=== PATIENT | male | born 1990 | race Caucasian/White ===

== ENCOUNTER 2024-12-25 18:24 | Emergency (ER) | payer OTHER, SELFPAY ==
--- OUTSIDE RECORDS SUMMARY | 2024-12-25 18:26 | XMS_ITS | Clinical Summary ---
Author Organization [facility] Address [address], [place] [address] Care Team Providers Care Water Treatment Plant Repairer Name Role Phone No Primary/Referring, Phy Primary Care Provider Unavailable Source Comments You are receiving this document as you are listed as the primary care provider,follow-up provider, or the patient has been referred to you for consultation.This is in compliance with the Medicare and[facility] EHR Incentive Program,which states Providers who transition their patient to another setting of careor provider of care or refers their patient to another provider of care shouldprovide summary care record for each transition of care or referral. 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 PHQ-9 score of 10. Denies suicidal ideation/intention/plan. Reports a good social support system. Had been initially diagnosed with anxiety in pediatrics, and had been treated with fluoxetine. His last visit for this was with pediatrics on 12/06/2011, and at that time, he was given refills of fluoxetine for 6 months, but recommended to establish with Family Medicine. Has not been seen for anxiety since then. 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/2009 Overview (12/04/2016): Pain Sacroiliac Resolved Problems Problem Noted Date Diagnosed Date Resolved Date Infectious mononucleosis 11/24/2007 Overview (11/16/2015): LW Modifier: diagnosed on 11-15-07 at [facility] Immunizations Immunization Administration Dates Next Due DTP 03/09/1993,01/16/1993 DTaP 10/18/1997 DTaP/Hib 03/29/1994,05/15/1993 HepB Adult (Engerix-B, 20+ y rs, 3 dose series) 05/15/1993,01/16/1993,1992 Hib (ActHIB) 03/09/1993,01/16/1993 MMR 10/18/1997,03/29/1994 OPV, Trivalent (Orimune or tOPV) 998,03/29/1994,03/09/1993,1992 TDAP (BOOSTRIX) 12/10/2005 Tdap 07/21/2013 Varicella 12/10/2005 Social History Tobacco Use Types Packs/Day Years Used Date Smoking Tobacco: Former Smokeless Tobacco: Former Chew Tobacco Cessation:Ready to Q uit: No Alcohol Use Standard Drinks/Week Comments Yes 24 (1 standard drink = 0.6 oz pu re alcohol) Sex and Gender Information Value Date Recorded Sex Assigned at Not on file Legal Sex Male 4:55 AM CDT Gender Identity Not on file Sexual Orientation Not on file Last Filed Vital Signs Vital Sign Reading Time Taken Comments Blood Pressure 130/80 08/20/2016 11:19 AM CDT Pulse 56 08/20/2016 11:19 AM CDT Temperature 36.4 C (97.6 F) 04/14/2015 6:35 AM PBX INSTALLER Respiratory Rate 16 04/14/2015 8:29 AM PBX INSTALLER Oxygen Saturation 100% 04/14/2015 8:29 AM PBX INSTALLER Inhaled Oxygen Concentration - - Weight 75.8 kg (167 lb) 08/20/2016 11:19 AM CDT Height 176.5 cm (5' 9.5) 06/14/2015 4:22 PM PBX INSTALLER Body Mass Index 24.31 06/14/2015 4:22 PM PBX INSTALLER Plan of Treatment Health Maintenance Due Date Last Done Comments Hep C Screening (Preventive Services) 1992 HIV Screening (Preventive Services) 2008 Adult Preventive Visit 2010 HPV Vaccine (1 - 3-dose SCDM series) 11/05/2019 DTaP/Tdap/Td Vaccine (8 - Tdap) 07/22/2023 07/21/2013, 12/10/2005, 10/18/1997, Additional history exists COVID-19 Vaccine ( season) 2024 Influenza Vaccine (#1) 2024 Zoster/Shingles Vaccine (1 of 2) 2042 HepB Vaccine Completed 05/15/1993, 08/1992, 1992 Hib Vaccine Completed 03/29/1994, 04/1993, 03/09/1993, Additional history exists IPV (Polio) Vaccine Completed 10/18/1997, 03/29/1994, 03/09/1993, Additional history exists HepA Vaccine Aged Out No longer eligi ble based on patient's age to complete this topic MCV4 Vaccine Aged Out No longer eligi ble based on patient's age to complete this topic Meningococcal B Vaccine Aged Out No l onger eligible based on patient's age to complete this topic Pneumococcal Vaccine Aged Out No long er eligible based on patient's age to complete this topic Insurance [facility] OUT OF STATE Care Teams Water Treatment Plant Repairer Relationship Specialty Start Date End Date No Primary/Referring, Phy PCP - General 12/14/15
--- OUTSIDE RECORDS SUMMARY | 2024-12-25 18:26 | XMS_ITS | Clinical Summary ---
Author Organization [facility] Address [address] [place] [id number] Care Team Providers Care Parole Or Probation Officer Name Role Phone Pcp, No Primary Care Provider Unavailabl e Allergies No known active allergies Medications FLUoxetine (PROZAC) 20 mg capsule Take 1 capsule by mouth every morning. 0 06/22/2013 Active Active Problems Problem Noted Date Diagnosed Date Adult situational stress disorder 06/22/2013 Immunizations Immunization Administration Dates Next Due DTaP 10/18/1997, 4,05/15/1993,03/09/1993,01/16 HIB PRP-T (ActHIB,Hiberix) 03/09/1993,01/16/1993 Hepatitis B (Peds) 05/15/1993,01/16/1993, 993 Hib Conjugate, Unspecified 03/29/1994,05/15/1993 MMR 10/18/1997,03/29/1994 Polio Virus, Unspecified 10/18/1997,03/29/1994,1 1992,01/16/1993 Tdap 07/21/2013,12/10/2005 Varicella Vaccine 12/10/2005 Social History Tobacco Use Types Packs/Day Years Used Date Smoking Tobacco: Never Smokeless Tobacco: Current Chew Tobacco Cessation:Ready to Q uit: Yes; Counseling Given: Yes Alcohol Use Standard Drinks/Week Comments Not Asked 0 (1 standard drink = 0.6 oz pur e alcohol) Sex and Gender Information Value Date Recorded Sex Assigned at Not on file Legal Sex Male 2:58 PM DISTRICT 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 Gender Identity Not on file Sexual Orientation Not on file Obstetrics History Last Filed Vital Signs Vital Sign Reading Time Taken Comments Blood Pressure 159/73 12/29/2013 9:18 AM CDT Pulse 76 12/29/2013 9:18 AM CDT Temperature 37.1 C (98.8 F) 12/29/2013 9:12 AM CDT Respiratory Rate 16 12/29/2013 9:18 AM CDT Oxygen Saturation 100% 12/29/2013 9:18 AM CDT Inhaled Oxygen Concentration - - Weight 66.7 kg (147 lb) 07/21/2013 12:30 PM CDT Height 176.5 cm (5' 9.5) 06/22/2013 12:09 PM CD T Body Mass Index - - Plan of Treatment Health Maintenance Due Date Last Done Comments Depression screening for age 12+ 2004 HIV for age 15-65 11/05/2007 BMI (ht and wt on same day) for age 18+ 2010 Hepatitis C screening for ag e 18-79 2010 HPV series for age 9-45 (1 - 3-dose SCDM series) 11/05/2019 Tetanus booster 07/22/2023 07/21/2013, 12/10/2005 COVID-19 vaccine series (2023- season) 2024 Influenza Vaccine (#1) 2024 RSV vaccine for adults or (1 - 1-dose 75+ series) 11/05/2067 Hepatitis B series for 19+ Completed 05/15, 01/16/1993, 1992 Pneumococcal series for age 6-49 Aged Out No longer eligible b ased on patient's age to complete this topic Insurance OF [employer] * Guarantor: [employer] OF [facility] Account Type Relation to Patient Date of Phone Billing Address [facility] [address] [place] [address] Care Teams Parole Or Probation Officer Relationship Specialty Start Date End Date Pcp, No . PCP - General 06/22/13
[2024-12-25 18:34] VITALS: BP 163/90; PULSE 98; RESP 18; TEMP 37.2; O2SAT 99; BMI 24.6
[2024-12-25 20:02] LABS: Hematocrit* 44.6 % (37.0-53.0); Hemoglobin* 15.8 gm/dL (13.5-17.5); Immature Granulocytes Abs Auto 0.02 K/uL (0.00-0.30); Immature Granulocytes Pct Auto 0.3 %; Lymphocytes Absolute Auto 2.26 K/uL (0.90-2.90); Mean Corpuscular HGB Conc 35 gm/dL (32-36); Mean Corpuscular Hemoglobin 29 pg (26-34); Mean Corpuscular Volume 83 fL (80-100); RDW Coefficient of Variation % 12.0 % (11.5-15.5); Red Blood Count* 5.37 m/uL (4.30-5.90); White Blood Count* 7.18 K/uL (4.50-11.00)
[2024-12-25 20:03] LABS: Appearance Urine Clear (Clear)
[2024-12-25 20:03] LABS: Slide Review Reflex No
--- NOTE | 2024-12-25 20:14 | ED_ITS ---
HPI - Abdominal Pain General Time Seen by Provider: 20:14 Date Seen: 12/25/24 Chief Complaint: Abdominal Pain Stated Complaint: Sharp abdominal Pain Time Seen by Provider: 12/25/24 20:15 Source: patient and family () Mode of arrival: ambulatory History of Present Illness HPI narrative: Rolando is a 34-year-old male with no significant past medical history who presents emergency department for evaluation abdominal pain. Patient complains of abdominal pain that has been intermittent for the past 2 months. Patient describes the pain as a cramping pain, stating it feels the tens unit is on him. Patient reports that pain is usually located in his left lower quadrant however has been having some right upper and epigastric abdominal pain as well. Pain is associated with nausea with vomiting. Denies any fever, chills, chest pain, shortness of breath. Patient reports some urinary frequency but denies any dysuria or hematuria. No medication at arrival. No other complaints. Patient reports that he has cut out caffeine, energy drinks, and has gone gluten free with no improvement of his symptoms. Related Data Previous Rx's ?Medication ?Instructions ?Recorded lisdexamfetamine 40 mg capsule 40 mg PO QDAY #30 caps 11/30/24 lisdexamfetamine 40 mg capsule 40 mg PO QAM #30 caps 0 11/30/24 (Vyvanse) lisdexamfetamine 40 mg capsule 40 mg PO QAM #30 caps 0 11/30/24 (Vyvanse) Allergies Allergy/AdvReac Type Severity Reaction Status Date / Time nickel Allergy Mild Rash Verified 12/25/24 18:36 Review of Systems Narrative Past medical history, past surgical history, medications, allergies, family his tory, and social history were reviewed with the patient. No additional pertinent items. A medically appropriate review of systems was performed with pertinent positives and negatives noted in HPI, all other systems negative. 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 - Attention-deficit hyperactivity disorder, predominantly inattentive type (ICD-10) Social History Narrative: , 5 kids, Wahl, chews, no EtOH What is your current living situation?: I presently have a place to live Problems where you live: no known problems In the past 12 months, utilities in danger of being shut off: no In past 12 months, lack of transportation kept you from medical appts, meetings, work, or getting things needed for daily living: no In the past 12 mos, have been you worried that your food would run out before you had money to buy more?: never true In the past 12 mos, the food you bought just didn't last and you didn't have money to buy more?: never true Smoking Status: Never smoker Second hand tobacco smoke exposure: No How often do you have a drink containing alcohol: never AUDIT-C Alcohol total score: 0 Non-prescribed substance use: denies use How often does anyone, including family, friends and others, physically hurt you : never How often does anyone, including family, friends and others, insult or talk down to you: never How often does anyone, including family, friends and others, threaten you with harm: never How often does anyone, including family, friends and others, scream or curse at you: never Exam Narrative: Exam Narrative: General: Afebrile, no acute distress HEENT: Normocephalic, atraumatic, conjunctiva normal. MMM Neck: non-tender, supple Cardio: regular rate. regular rhythm Resp: Normal work of breathing, no respiratory distress, lungs clear bilaterally, no wheezing, rhonchi, rales Chest/Back: no visual signs of trauma, no midline tenderness, no CVA tenderness Abdomen: soft, non distension, +TTP epigastric and RUQ with no rebound, no guarding, no peritoneal signs Neuro: alert and fully oriented. CN II-XII grossly intact. Grossly normal strength and sensation in all extremities. MSK: no deformities. Normal range of motion Integumentary/Skin: no rash visualized, normal color Psych: normal affect, normal behavior Const: Vital Signs, click to edit/add: Vital Signs - 24 hr 12/25/24 18:34 Temperature 99 F Pulse Rate [Right] 98 Respiratory Rate 18 Blood Pressure [Ri ght Upper Arm] 163/90 H Pulse Oximetry 99 Oxygen Delivery Me thod Room Air Course Vital Signs Vital signs: Initial Vital Signs Temperature 99 F 12/25/24 18:34 Temperature Source Temporal Artery Scan 12/25/24 18:34 Pulse Rate 98 12/25/24 18:34 Pulse Rhythm Regular 12/25/24 18:34 Respiratory Rate 18 12/25/24 18:34 Blood Pressure 163/90 H 12/25/24 18:34 Blood Pressure Mean 114 H 12/25/24 18:34 Blood Pressure Position Sitting 12/25/24 18:34 Pulse Oximetry 99 12/25/24 18:34 Oxygen Delivery Method Room Air 12/25/24 18:34 Vital Signs Temperature 99 F 12/25/24 18:34 Pulse Rate 98 12/25/24 18:34 Respiratory Rate 18 12/25/24 18:34 Blood Pressure 163/90 H 12/25/24 18:34 Pulse Oximetry 99 12/25/24 18:34 Oxygen Delivery Method Room Air 12/25/24 18:34 Temperature 99 F 12/25/24 18:34 Pulse Rate 98 12/25/24 18:34 Respiratory Rate 18 12/25/24 18:34 Blood Pressure 163/90 H 12/25/24 18:34 Pulse Oximetry 99 12/25/24 18:34 Oxygen Delivery Method Room Air 12/25/24 18:34 MDM - Abdominal Pain MDM Narrative Medical decision making narrative: Rolando is a 34-year-old male with no significant past medical history who presents the emergency department for intermittent abdominal pain for the past 2 months. Upon arrival patient is nontoxic appearing, afebrile, no distress. Patient is slightly hypertensive upon arrival 163/90, otherwise hemodynamically stable with heart rate 98, oxygen 100% on room air. Differential diagnosis includes but is not limited to gastritis versus peptic ulcer disease versus acid reflux versus pancreatitis versus cholecystitis versus biliary colic versus colitis versus constipation versus nephrolithiasis versus pyelonephritis versus cystitis versus less likely appendicitis among others. Upon arrival patient declined anything for his symptoms. Comprehensive labs, urinalysis, CT imaging performed. Comprehensive labs remarkable with no leukocytosis white blood cell count 7.18, hemoglobin 15.8, no acute metabolic or electrolyte abnormality, no transaminitis, normal bilirubin, normal lipase. Urinalysis with no evidence of acute infection, there is blood noted in the urine. Given patient's symptoms, microscopic hematuria, will proceed with CT imaging without contrast. I personally reviewed and interpreted CT scan abdomen pelvis which demonstrates no evidence of gallbladder disease, no visualized calculi, no hydronephrosis. There is circumferential wall thickening at the rectosigmoid junction with mild adjacent stranding suspicious for proctocolitis. Recommend clinical follow up to ensure no associated mass lesion. I discussed results with patient and spouse. Patient has no history of radiation, no history of known inflammatory bowel disease, denies any concern for sexually transmitted infection (denies any dysuria, penile discharge, lesions). Patient does not want to be tested for sexually transmitted infections - gonorrhea chlamydia at this time. Patient states he is not interested in antibiotics. Patient denies any rectal bleeding, blood in the stool, no mucus, no tenesmus, no rectal pain, no diarrhea, no rectal fullness. At this time patient and spouse feel comfortable with discharge, recommend supportive care with oral hydration, Tylenol, ibuprofen. Encourage patient to follow-up in clinic for possible further laboratory testing/inflammatory markers, as well as colonoscopy for further evaluation. Patient is also comfortable with this plan. Strict return precautions discussed if high fever, severe abdominal pain, blood in the stools, or any worsening symptoms. Medical Records Attestation: I reviewed the patient's medical records. Lab Data Attestation: I reviewed the patient's lab results. Labs: Lab Results 12/25/24 12/25/24 12/25/24 Range/Units 19:45 19:50 20:17 WBC 7.18 (4.50-11.00) K/uL RBC 5.37 (4.30-5.90) m/uL Hgb 15.8 (13.5-17.5) gm/dL Hct 44.6 (37.0-53.0) % MCV 83 (80-100) fL MCH 29 (26-34) pg MCHC 35 (32-36) gm/dL RDW Coeff of Anthony 12.0 (11.5-15.5) % Plt Count 270 (140-440) K/uL Neut % (Auto) 52.9 (42.0-72.0) % Lymph % (Auto) 31.5 (20-44) % Callahan % (Auto) 10.3 (0.0-11.0) % Eos % (Auto) 4.6 (0.0-7.0) % Baso % (Auto) 0.4 (0.0-3.0) % Neut # (Auto) 3.80 (1.7-7.0) K/uL Lymph # (Auto) 2.26 (0.90-2.90) K/uL Callahan # (Auto) 0.70 (0.00-0.90) K/UL Eos # (Auto) 0.33 (0.00-0.50) K/uL Baso # (Auto) 0.03 (0.00-0.30) K/uL Abs Immat Gran (auto) 0.02 (0.00-0.30) K/uL Imm/Tot Granulo (auto) 0.3 % Sodium 137 (135-149) mmol/L Potassium 3.9 (3.6-5.1) mmol/L Chloride 101 (96-114) mmol/L Carbon Dioxide 28 (20-32) mmol/L Anion Gap 8 (7-15) mEq/L BUN 10 (5-24) mg/dL Creatinine 0.9 (0.5-1.5) mg/dL Estimated Creat Clear 117.83 Estimated GFR 116 ml/min Glucose 114 (60-115) mg/dL Calcium 9.2 (8.4-10.6) mg/dL Total Bilirubin 1.4 (0.1-1.5) mg/dL Direct Bilirubin 0.4 (0.0-0.5) mg/dL AST 24 (12-35) U/L ALT 17 (4-50) U/L Alkaline Phosphatase 68 (40-150) U/L Total Protein 7.6 (6.0-8.3) g/dL Albumin 4.6 (3.3-5.0) g/dL Lipase 84 (23-300) U/L Urine Color Light yellow (Yellow) Urine Appearance Clear (Clear) Urine pH 7.0 (5.0-8.5) Ur Specific [place] 1.010 (1.000-1.030) Urine Protein Negative (Negative) Urine Glucose (UA) Negative (Negative) Urine Ketones Negative (Negative) Urine Blood Trace-intact A (Negative) Urine Nitrite Negative (Negative) Urine Bilirubin Negative (Negative) Urine Urobilinogen 0.2 (0.2-1.0) Ur Leukocyte Esterase Negative (Negative) Urine RBC 2-5 A (0-2) Urine WBC 0-2 (0-5) Ur Squamous Epith Cells None (None-Few) Urine Bacteria None (None) Discharge Plan Discharge Clinical Impression: Abdominal pain Patient Disposition: Home, Self-Care Condition: Stable Additional Instructions: Please follow-up with your primary care provider or in our clinic in the next 3- 5 days for further evaluation and follow-up. We recommend further blood tests along with likely colonoscopy. Please call the clinic to schedule an appointment [phone]. Please drink plenty of water. Please alternate taking Tylenol 1000 mg and ibuprofen 600 mg every 6 hours as needed for pain. Please return to the emergency department if you develop high fever, severe abdominal pain, persistent vomiting, blood in your stools, or any worsening symptoms. It was a pleasure taking care of you today. We hope you feel better soon. Prescriptions: No Action lisdexamfetamine [Vyvanse] 40 mg capsule 40 mg PO QAM Qty: 30 0RF lisdexamfetamine [Vyvanse] 40 mg capsule 40 mg PO QAM Qty: 30 0RF lisdexamfetamine 40 mg capsule 40 mg PO QDAY Qty: 30 0RF Follow Up/Referrals: Erlin Jones MD [Primary Care Provider, Family Practice] Stand Alone Forms: GetYou Info Instructions
[2024-12-25 20:27] LABS: Chloride* 101 mmol/L (96-114); Potassium* 3.9 mmol/L (3.6-5.1); Sodium* 137 mmol/L (135-149)
[2024-12-25 20:27] LABS: Albumin* 4.6 g/dL (3.3-5.0)
[2024-12-25 20:30] LABS: Anion Gap 8 mEq/L (7-15); Blood Urea Nitrogen* 10 mg/dL (5-24); Carbon Dioxide* 28 mmol/L (20-32); Creatinine* 0.9 mg/dL (0.5-1.5); Est. Creatinine Clearance* 117.83; Estimated Glomerular Filt Rate 116 ml/min
[2024-12-25 20:30] LABS: Alanine Aminotransferase* 17 U/L (4-50); Alkaline Phosphatase* 68 U/L (40-150); Aspartate Amino Transferase* 24 U/L (12-35); Bilirubin Direct* 0.4 mg/dL (0.0-0.5); Bilirubin Total* 1.4 mg/dL (0.1-1.5); Total Protein* 7.6 g/dL (6.0-8.3)
[2024-12-25 20:31] LABS: Calcium* 9.2 mg/dL (8.4-10.6); Glucose* 114 mg/dL (60-115)
--- NOTE | 2024-12-25 20:37 | CRLHL7_ITS ---
For Patients: As a result of the Century Cures Act, medical imaging exams and procedure reports are released immediately into your electronic medical record. You may view this report before your referring provider. If you have questions, please contact your health care provider. Indication: Left lower quadrant pain, question kidney stone Technique: Noncontrast CT through the abdomen and pelvis with multiplanar reformats. Comparison: None Findings: Lower chest: No acute abnormality appreciated. Hepatobiliary: No significant parenchymal abnormality is appreciated. Spleen: Unremarkable. Pancreas: No acute abnormality appreciated. Adrenal glands: No acute abnormality appreciated. Kidneys: No significant parenchymal abnormality appreciated. No visualized calculi. No hydronephrosis. Bowel: No obstruction. Circumferential wall thickening at the rectosigmoid junction with mild adjacent stranding. The appendix is visualized and appears unremarkable. Vascular: Poorly evaluated on this noncontrast examination. Lymph nodes: No gross lymphadenopathy. Peritoneum: No free air. No free fluid. : No acute abnormality appreciated. Soft tissues: No acute abnormality appreciated. Bones: No acute fracture. No lytic or blastic lesion. Mild lumbosacral spondylosis. Impression: There is circumferential wall thickening at the rectosigmoid junction with mild adjacent stranding suspicious for proctocolitis. Clinical follow-up recommended to ensure there is no associated mass lesion. No other acute abnormality is appreciated. Please note that all CT scans at this facility use dose modulation, iterative reconstruction, and/or weight-based dosing when appropriate to reduce radiation dose to as low as reasonably achievable. Dictated by Ac Bullock MD @ 12/25/2024 9:35:08 PM (Electronically Signed)
[2024-12-25 22:04] VITALS: BP 145/74; PULSE 85; RESP 18; TEMP 37.2; O2SAT 99
[2024-12-25 22:05] VITALS: BP 145/74; PULSE 85; RESP 18; TEMP 37.2
== END 2024-12-25 22:05 | disposition home or self-care (01) ==
PROVIDERS: Emergency Provider Emergency Medicine; PCP Family Medicine
DX: R10.32 Left lower quadrant pain (principal)
CPT/HCPCS: 36415; 74176; 80048; 80076; 81001; 83690; 85025; 99283; 99284; 99285